=== PATIENT | male | born 1940 | race Caucasian/White ===

== ENCOUNTER → 2018-02-01 | Outpatient (CLI) | payer MEDICARE, BC ==
[~2018-02-01] MED LIST: ARICEPT 5MG PO; ASPIRIN 32325 MG/TAB PO; B-121000 MCG PO; COUMADIN PO; CRESTOR 10MG10 MG PO; DOXYCYCLINE HY100 MG PO; ELIQUIS 5MG PO; GLUCOSAMINE & C1 CA1 PO; LEVAQUIN 750MG750 M1 PO; MASON NATURAL2000 IU PO; METFORMIN500 MG PO; NAMENDA 10MG TA10 MG PO; OCUVITE ADULT 51 SGL PO; PRADAXA 150MG150 MG PO; PROTONIX 40MG T40 MG PO; SEROQUEL50 MG PO; TIKOSYN0.5 MG PO; TOPROL XL 25MG25 MG PO; ZESTRIL 5MG5 MG PO
== END ==
LOC: COL.RAD 01-26 11:30
DX: E11.9 Type 2 diabetes mellitus without complications (principal); J98.4 Other disorders of lung; R22.2 Localized swelling, mass and lump, trunk; R91.1 Solitary pulmonary nodule
CPT/HCPCS: Q9967

== ENCOUNTER → 2019-02-16 | Outpatient (CLI) | payer MEDICARE, BC | LOC: COL.RAD 02-07 13:00 | DX: R91.1 Solitary pulmonary nodule (principal); R91.8 Other nonspecific abnormal finding of lung field; E04.1 Nontoxic single thyroid nodule | CPT/HCPCS: Q9967 ==

== ENCOUNTER 2019-05-02 10:37 | Emergency (ER) | payer MEDICARE, BC ==
[2019-05-02 10:52] VITALS: TEMP 98.7
[2019-05-02 11:48] LABS: BASO % 0.4 % (0.0-2.0); EOS % 0.7 % (0-4.0); GRAN # 3.4 (1.4-6.5); GRAN % 59.9 % (42.2-75.2); HEMOGLOBIN 17.2 g/dl (13.5-18.0); LYMPH # 1.5 (1.2-3.4); LYMPH % 26.9 % (20.0-51.0); MEAN CELL VOLUME 94 fl (80.0-100.0); MEAN CORPUSCULAR HEMOGLOBIN 31 pg (27.0-31.0); MEAN CORPUSCULAR HGB CONC 33 g/dl (33.0-37.0); MEAN PLATELET VOLUME 9.7 fl (7.4-10.4); MONO # 0.7 (0.1-0.6); MONO % 11.7 % (1.7-9.3); PLATELET COUNT 141 K/mm3 (130-400); RED BLOOD COUNT 5.57 M/mm3 (4.20-5.60); REDCELL DISTRIBUTION WIDTH-CV 13.6 % (11.5-14.5)
[2019-05-02 11:56] LABS: ARTERIAL BLD GAS O2 SATURATION 96.4 % (92-100); ARTERIAL BLD GAS TCO2 CT 21.5; ARTERIAL BLOOD GAS BASE EXCESS -2.5 (-2-2); ARTERIAL BLOOD GAS HCO3 20.5 meq/L (22-26); ARTERIAL BLOOD GAS PCO2 31.6 mmHg (35-45); ARTERIAL BLOOD GAS PO2 64.4 mmHg (80-100); ARTERIAL BLOOD GAS pH 7.43 (7.35-7.45)
[2019-05-02 12:05] LABS: HEMATOCRIT 52.1 % (42.0-52.0)
[2019-05-02 12:22] LABS: COLLECTION METHOD CLEAN CATCH
[2019-05-02 12:28] LABS: ALBUMIN 4.5 gm/dL (3.5-5.0); BILIRUBIN,TOTAL 2.2 mg/dL (0.0-1.0); CALCIUM 10.1 mg/dL (8.4-10.2); CREATININE, serum 1.2 (0.66-1.25); POTASSIUM 4.3 mmol/L (3.4-5.0); TOTAL PROTEIN 7.7 gm/dL (6.4-8.2)
[2019-05-02 12:34] LABS: MUCOUS Present /lpf; PH 5 (5-8); SQUAMOUS EPITHELIAL None Seen /hpf; URINE APPEARANCE Hazy; URINE BACTERIA None Seen /hpf; URINE BILIRUBIN Negative (NEGATIVE); URINE BLOOD Negative (NEGATIVE); URINE COLOR Yellow; URINE GLUCOSE Negative (NEGATIVE); URINE KETONE Negative (NEGATIVE); URINE LEUKOCYTE ESTERASE Negative (NEGATIVE); URINE NITRATE Negative (NEGATIVE); URINE PROTEIN(semi-quant) Negative (NEGATIVE); URINE RBC 0-2 /hpf
[2019-05-02] MEDS ORDERED: TAMIFLU 75MG75 MG PO (12:44)
[2019-05-02 13:25] VITALS: BP 131/78; PULSE 73
== END 2019-05-02 13:14 | disposition home or self-care (01) ==
LOC: COL.ER 10:37
PROVIDERS: Family Medicine
DX: J11.1 Influenza due to unidentified influenza virus with other respiratory manifestations (principal); F03.90 Unspecified dementia, unspecified severity, without behavioral disturbance, psychotic disturbance, mood disturbance, and anxiety; Z79.01 Long term (current) use of anticoagulants
CPT/HCPCS: J7120

== ENCOUNTER 2020-12-22 13:31 | Outpatient (RCR) | payer MEDICARE, BC ==
[~2020-12-22 13:31] MED LIST changes: +TAMIFLU 75MG75 MG PO
== END 2021-02-20 | disposition home or self-care (01) ==
LOC: WSST
DX: R13.10 Dysphagia, unspecified (principal)

== ENCOUNTER 2021-03-27 12:18 | Outpatient (RCR) | payer MEDICARE, BC | END 2021-04-20 | disposition home or self-care (01) | LOC: MKS.ESL.PT | DX: R53.1 Weakness (principal); R26.89 Other abnormalities of gait and mobility ==

== ENCOUNTER → 2021-07-09 12:46 | Outpatient (RCR) | payer MEDICARE, BC | END | disposition home or self-care (01) | LOC: MKS.ESL.PT 04-21 14:30 | DX: R53.1 Weakness (principal) ==

== ENCOUNTER 2023-10-12 18:37 | Emergency (ER) | payer MEDICARE, BC ==
[~2023-10-12] VITALS: Ht 190.5 cm; Wt 95.5 kg
[2023-10-12] MEDS ORDERED: NS 1,000 ML IV ONE (19:30)
[2023-10-12 19:46] LABS: HEMATOCRIT 49.3 % (42.0-52.0); HEMOGLOBIN 16.1 g/dl (13.5-18.0); MEAN CELL VOLUME 95 fl (80.0-100.0); MEAN CORPUSCULAR HEMOGLOBIN 31 pg (27-31); MEAN CORPUSCULAR HGB CONC 33 g/dl (33.0-37.0); MEAN PLATELET VOLUME 9.1 fl (7.4-10.4); PLATELET COUNT 161 K/mm3 (130-400); REDCELL DISTRIBUTION WIDTH-CV 12.8 % (11.5-14.5)
[2023-10-12 19:56] LABS: ERYTHROCYTE SEDIMENTATION RATE 11 mm/hr (0-30)
[2023-10-12 19:59] LABS: ALANINE AMINOTRANSFERASE 31 U/L (0-55); ALBUMIN 3.6 g/dL (3.4-4.8); ALKALINE PHOSPHATASE 91 U/L (40-150); ANION GAP 8 mmol/L (7-16); AST,SGOT 23 U/L (5-34); BILIRUBIN,TOTAL 1.3 mg/dL (0.2-1.2); BLOOD UREA NITROGEN 19 mg/dL (8-26); C-REACTIVE PROTEIN 1.57 mg/dL (0.00-0.50); CHLORIDE 110 mEq/L (98-107); CREATININE, serum 0.96 mg/dL (0.72-1.25); GLUCOSE 144 mg/dL (70-99); LIPASE 22 U/L (8-78); POTASSIUM 4.1 mEq/L (3.5-4.5); SODIUM 137 mEq/L (136-145); TOTAL PROTEIN 6.4 g/dl (6.2-8.1)
[2023-10-12 20:14] LABS: TROPONIN-I < 0.010 ng/mL (0.00-0.033)
[2023-10-12 20:17] VITALS: TEMP 100.9
[2023-10-12] MEDS ORDERED: NS 500 ML IV ONE (22:00)
[2023-10-12 22:25] LABS: COLLECTION METHOD CLEAN CATCH
[2023-10-12 22:34] LABS: PH 5.5 (5.0-8.5); URINE APPEARANCE CLEAR (CLEAR/HAZY); URINE BLOOD NEGATIVE (NEGATIVE); URINE COLOR YELLOW (YELLOW); URINE GLUCOSE NEGATIVE (NEGATIVE); URINE KETONE TRACE (NEGATIVE); URINE NITRATE NEGATIVE (NEGATIVE); URINE PROTEIN(semi-quant) NEGATIVE (NEGATIVE)
[2023-10-12 23:00] VITALS: BP 111/72; PULSE 61
== END 2023-10-12 23:00 | disposition home or self-care (01) ==
LOC: COL.ER 18:37
PROVIDERS: Emergency Medicine
DX: F03.90 Unspecified dementia, unspecified severity, without behavioral disturbance, psychotic disturbance, mood disturbance, and anxiety (principal); R53.1 Weakness
CPT/HCPCS: J7030; J7040